=== PATIENT | male | born 1955 | race African-American/Black ===

== ENCOUNTER 2021-08-20 09:17 | Inpatient (IN) | payer MEDICARE ==
[~2021-08-20] VITALS: Ht 177.8 cm; Wt 76.2 kg
[2021-08-20 09:43] LABS: BASOPHILS % (AUTO) 0.5 % (0.0-2.0); EOSINOPHILS % (AUTO) 1.2 % (1.0-6.0); HEMATOCRIT 43.9 % (41-53); HEMOGLOBIN 14.7 g/dL (13.5-17.5); LYMPHOCYTES # (AUTO) 2.4 K/uL (1.0-4.8); MEAN CORPUSCULAR HGB CONC 33.5 G/dL (31.0-37.0); MEAN CORPUSCULAR VOLUME 87 fL (80-100); MONOCYTES % (AUTO) 10.1 % (2.0-9.0); NEUTROPHILS # (AUTO) 6.5 K/uL (1.8-7.7); NEUTROPHILS % (AUTO) 64.2 % (40.0-70.0); PLATELET COUNT (AUTO) 196 K/uL (150-450); RED BLOOD CELL COUNT(AUTO) 5.07 MIL/uL (4.50-5.90); RED CELL DISTRIBUTION WIDTH 14.4 % (11.5-14.5)
[2021-08-20 09:57] LABS: CALCIUM, TOTAL 9.3 mg/dL (8.8-10.5); CREATININE 1.59 mg/dL (0.60-1.30)
[2021-08-20 10:10] LABS: ALBUMIN 3.2 g/dL (3.4-5.0); BILIRUBIN,TOTAL 0.4 mg/dL (0.1-1.0)
[2021-08-20] MEDS ORDERED: CLOPIDOGREL BISULFATE 75 MG TABLET PO ONE (10:15)
[2021-08-20] MEDS ORDERED: ASPIRIN 325 MG TABLET PO ONE (10:15)
[2021-08-20 10:26] LABS: PROTHROMBIN TIME 10.9 SEC (9.4-11.6)
[2021-08-20 10:50] LABS: COVID AG,FIA SOURCE NASAL SWAB
[2021-08-20 14:08] VITALS: BP 165/77
[2021-08-20] MEDS ORDERED: INFLUENZA VIRUS VACCINE QVS 2021-22 (6MO+)/PF 60 MCG/0.5 ML SYRINGE IM. ONE (15:15)
[2021-08-20] MEDS ORDERED: PNEUMOCOCCAL VACCINE POLYVALENT 0.5 ML VIAL [PPSV23] IM. ONE (15:15)
[2021-08-20] MEDS ORDERED: ACETAMINOPHEN 325 MG TABLET PO PRN (16:15)
[2021-08-20] MEDS ORDERED: MORPHINE SULFATE 2 MG/ML SYRINGE IVP PRN (16:15)
[2021-08-20] MEDS ORDERED: HYDROCODONE/ACETAMINOPHEN 5-325 MG TABLET PO PRN (16:15)
[2021-08-20] MEDS ORDERED: MAGNESIUM HYDROXIDE SUSPENSION 30 ML UDCUP PO PRN (16:15)
[2021-08-20] MEDS ORDERED: BISACODYL 10 MG RECTAL RECTAL SUPPOSITORY PR PRN (16:15)
[2021-08-20] MEDS ORDERED: ZOLPIDEM TARTRATE 5 MG TABLET PO PRN (16:15)
[2021-08-20] MEDS ORDERED: ONDANSETRON HCL 4 MG/2 ML VIAL IVP PRN (16:15)
[2021-08-20] MEDS ORDERED: ALBUTEROL SULFATE 2.5 MG/0.5 ML NEB SOLUTION NEB PRN (16:15)
[2021-08-20] MEDS ORDERED: IPRATROPIUM BROMIDE 0.5 MG/2.5 ML NEB SOLUTION NEB PRN (16:15)
[2021-08-20 20:18] VITALS: BP 134/68
[2021-08-20] MEDS: DOCUSATE SODIUM 100 MG CAPSULE PO SCH (21:21)
[2021-08-21] VITALS (7 sets, daily range): BP systolic 115–161; BP diastolic 63–83
[2021-08-21] MEDS: HEPARIN SODIUM,PORCINE 5,000 UNITS/ML VIAL SQ SCH ×4 (00:31→23:27)
[2021-08-21 07:14] LABS: CHOL/HDL RATIO 5.9 (4.2-7.3)
[2021-08-21] MEDS: PANTOPRAZOLE SODIUM 40 MG/VIAL IVP SCH (08:28)
[2021-08-21] MEDS: ASPIRIN 81 MG DR TABLET PO SCH (08:28)
[2021-08-21] MEDS: DOCUSATE SODIUM 100 MG CAPSULE PO SCH ×2 (08:28→21:11)
[2021-08-21 15:55] LABS: THYROID STIMULATING HORMONE 3.49 uIU/mL (0.36-3.74)
[2021-08-22 04:35] VITALS: BP 161/69
[2021-08-22 05:57] VITALS: BP 161/69
[2021-08-22 06:55] LABS: BASOPHILS % (AUTO) 0.4 % (0.0-2.0); EOSINOPHILS % (AUTO) 2.4 % (1.0-6.0); HEMOGLOBIN 14.1 g/dL (13.5-17.5); LYMPHOCYTES # (AUTO) 2.4 K/uL (1.0-4.8); LYMPHOCYTES % (AUTO) 29.4 % (22.0-44.0); MEAN CORPUSCULAR HGB CONC 33.5 G/dL (31.0-37.0); MEAN CORPUSCULAR VOLUME 87 fL (80-100); MONOCYTES # (AUTO) 0.8 K/uL (0.1-1.0); MONOCYTES % (AUTO) 10.3 % (2.0-9.0); NEUTROPHILS # (AUTO) 4.7 K/uL (1.8-7.7); NEUTROPHILS % (AUTO) 57.5 % (40.0-70.0); RED BLOOD CELL COUNT(AUTO) 4.85 MIL/uL (4.50-5.90); RED CELL DISTRIBUTION WIDTH 14.4 % (11.5-14.5)
[2021-08-22 07:06] LABS: PLATELET COUNT (AUTO) 183 K/uL (150-450)
[2021-08-22 07:19] LABS: CREATININE 1.56 mg/dL (0.60-1.30); POTASSIUM 3.9 mmol/L (3.5-5.1)
[2021-08-22 07:31] VITALS: BP 127/75
[2021-08-22] MEDS: DOCUSATE SODIUM 100 MG CAPSULE PO SCH ×2 (09:41→21:22)
[2021-08-22] MEDS: HEPARIN SODIUM,PORCINE 5,000 UNITS/ML VIAL SQ SCH ×2 (09:41→17:47)
[2021-08-22] MEDS: PANTOPRAZOLE SODIUM 40 MG/VIAL IVP SCH (09:41)
[2021-08-22] MEDS: ASPIRIN 81 MG DR TABLET PO SCH (09:48)
[2021-08-22 11:33] VITALS: BP 122/63
[2021-08-22] MEDS: CLOPIDOGREL BISULFATE 75 MG TABLET PO SCH (12:14)
[2021-08-22 15:33] VITALS: BP 132/76
[2021-08-22] MEDS ORDERED: LORazepam 2 MG/ML VIAL IVP PRN (16:45)
[2021-08-22 20:15] VITALS: BP 140/81
[2021-08-22] MEDS: ATORVASTATIN CALCIUM 40 MG TABLET PO SCH (21:22)
[2021-08-23 00:27] VITALS: BP 150/76
[2021-08-23] MEDS: HEPARIN SODIUM,PORCINE 5,000 UNITS/ML VIAL SQ SCH ×3 (01:14→17:17)
[2021-08-23 04:55] VITALS: BP 156/68
[2021-08-23 06:31] LABS: BASOPHILS % (AUTO) 0.6 % (0.0-2.0); EOSINOPHILS % (AUTO) 2.2 % (1.0-6.0); HEMATOCRIT 40.7 % (41-53); HEMOGLOBIN 13.7 g/dL (13.5-17.5); LYMPHOCYTES # (AUTO) 2.4 K/uL (1.0-4.8); LYMPHOCYTES % (AUTO) 26.8 % (22.0-44.0); MEAN CORPUSCULAR HEMOGLOBIN 29.1 pg (26.0-34.0); MEAN CORPUSCULAR HGB CONC 33.7 G/dL (31.0-37.0); MEAN CORPUSCULAR VOLUME 86 fL (80-100); MONOCYTES # (AUTO) 0.9 K/uL (0.1-1.0); MONOCYTES % (AUTO) 10.3 % (2.0-9.0); NEUTROPHILS # (AUTO) 5.4 K/uL (1.8-7.7); NEUTROPHILS % (AUTO) 60.1 % (40.0-70.0); RED BLOOD CELL COUNT(AUTO) 4.72 MIL/uL (4.50-5.90); RED CELL DISTRIBUTION WIDTH 14.2 % (11.5-14.5)
[2021-08-23 06:47] LABS: CALCIUM, TOTAL 8.8 mg/dL (8.8-10.5); CREATININE 1.63 mg/dL (0.60-1.30); POTASSIUM 3.8 mmol/L (3.5-5.1)
[2021-08-23 06:55] VITALS: BP 148/67
[2021-08-23 08:04] LABS: PLATELET COUNT (AUTO) 183 K/uL (150-450)
[2021-08-23 08:05] LABS: PLATELET MORPHOLOGY COMMENT LARGE PLTS PRESENT
[2021-08-23] MEDS: DOCUSATE SODIUM 100 MG CAPSULE PO SCH ×2 (09:00→20:52)
[2021-08-23] MEDS: ASPIRIN 81 MG DR TABLET PO SCH (09:26)
[2021-08-23] MEDS: PANTOPRAZOLE SODIUM 40 MG/VIAL IVP SCH (09:28)
[2021-08-23] MEDS: CLOPIDOGREL BISULFATE 75 MG TABLET PO SCH (09:28)
[2021-08-23 10:23] VITALS: BP 134/73
[2021-08-23 15:41] VITALS: BP 164/67
[2021-08-23] MEDS: ATORVASTATIN CALCIUM 40 MG TABLET PO SCH (20:51)
[2021-08-23 21:10] VITALS: BP 127/71
[2021-08-24] MEDS: HEPARIN SODIUM,PORCINE 5,000 UNITS/ML VIAL SQ SCH ×2 (00:03→08:29)
[2021-08-24 00:10] VITALS: BP 149/89
[2021-08-24 04:02] VITALS: BP 129/75
[2021-08-24 07:20] VITALS: BP 154/69
[2021-08-24] MEDS: CLOPIDOGREL BISULFATE 75 MG TABLET PO SCH (08:29)
[2021-08-24] MEDS: DOCUSATE SODIUM 100 MG CAPSULE PO SCH (08:29)
[2021-08-24] MEDS: ASPIRIN 81 MG DR TABLET PO SCH (08:29)
[2021-08-24] MEDS: PANTOPRAZOLE SODIUM 40 MG/VIAL IVP SCH (08:29)
[2021-08-24 08:32] LABS: BASOPHILS % (AUTO) 0.5 % (0.0-2.0); EOSINOPHILS % (AUTO) 1.7 % (1.0-6.0); HEMOGLOBIN 14.9 g/dL (13.5-17.5); LYMPHOCYTES # (AUTO) 2.3 K/uL (1.0-4.8); LYMPHOCYTES % (AUTO) 25.1 % (22.0-44.0); MEAN CORPUSCULAR HEMOGLOBIN 28.9 pg (26.0-34.0); MEAN CORPUSCULAR HGB CONC 33.2 G/dL (31.0-37.0); MEAN CORPUSCULAR VOLUME 87 fL (80-100); MONOCYTES # (AUTO) 0.9 K/uL (0.1-1.0); MONOCYTES % (AUTO) 9.5 % (2.0-9.0); NEUTROPHILS # (AUTO) 5.9 K/uL (1.8-7.7); NEUTROPHILS % (AUTO) 63.2 % (40.0-70.0); RED BLOOD CELL COUNT(AUTO) 5.17 MIL/uL (4.50-5.90); RED CELL DISTRIBUTION WIDTH 14.6 % (11.5-14.5)
[2021-08-24 08:35] LABS: ALBUMIN 3.3 g/dL (3.4-5.0); BILIRUBIN,TOTAL 0.4 mg/dL (0.1-1.0); CALCIUM, TOTAL 9.3 mg/dL (8.8-10.5); CREATININE 1.63 mg/dL (0.60-1.30); TOTAL PROTEIN, SERUM 8.2 g/dL (6.4-8.2)
[2021-08-24] MEDS ORDERED: METOPROLOL SUCCINATE 25 MG ER TABLET PO SCH (09:00)
[2021-08-24 10:16] LABS: PLATELET COUNT (AUTO) 200 K/uL (150-450)
[2021-08-24 11:38] VITALS: BP 158/72
[2021-08-24 15:18] VITALS: BP 131/74
[2021-08-26 16:07] LABS: HEPATITIS C AB (EIA) >11.0 s/co ratio (0.0-0.9); HEPATITIS C RT-PCR,QNT HCV Not Detected IU/mL
== END 2021-08-24 15:50 | DRG 65 ==
LOC: EMS 09:20 → 5S 13:02
PROVIDERS: ADMIT Hospitalist; ATTEND Hospitalist
DX: I63.9 Cerebral infarction, unspecified (principal); N17.9 Acute kidney failure, unspecified; E44.0 Moderate protein-calorie malnutrition; G81.91 Hemiplegia, unspecified affecting right dominant side; E78.5 Hyperlipidemia, unspecified; F17.210 Nicotine dependence, cigarettes, uncomplicated; I10 Essential (primary) hypertension; R29.705 NIHSS score 5; G62.9 Polyneuropathy, unspecified; Z20.822 Contact with and (suspected) exposure to COVID-19; R47.81 Slurred speech; R00.1 Bradycardia, unspecified; R00.8 Other abnormalities of heart beat; Z68.24 Body mass index [BMI] 24.0-24.9, adult
CPT/HCPCS: 70496; 70498; 71045; 80048; 80053; 80061; 80074; 83735; 84443; 84484; 85025; 85610; 85730; 86850; 86900; 86901; 87522; 92507; 92610; 93005; 93306; 93880; 97112; 97116; 97162; 97166; 97530; 97535; 99291; C9113; J1644; 36415-L1; 36415-TC; 70450; 70450-TC

== ENCOUNTER 2021-08-24 15:49 | Inpatient (IN) | payer MEDICARE ==
[~2021-08-24] VITALS: Ht 177.8 cm; Wt 74.8 kg
[2021-08-24 16:30] VITALS: BP 140/74
[2021-08-24] MEDS ORDERED: MAGNESIUM HYDROXIDE SUSPENSION 30 ML UDCUP PO PRN (16:45)
[2021-08-24] MEDS ORDERED: ACETAMINOPHEN 325 MG TABLET PO PRN (16:45)
[2021-08-24] MEDS ORDERED: IPRATROPIUM BROMIDE 0.5 MG/2.5 ML NEB SOLUTION NEB PRN (16:45)
[2021-08-24] MEDS ORDERED: HYDROCODONE/ACETAMINOPHEN 5-325 MG TABLET PO PRN (16:45)
[2021-08-24] MEDS ORDERED: ALBUTEROL SULFATE 2.5 MG/0.5 ML NEB SOLUTION NEB PRN (16:45)
[2021-08-24] MEDS ORDERED: BISACODYL 10 MG RECTAL RECTAL SUPPOSITORY PR PRN (16:45)
[2021-08-24] MEDS ORDERED: INFLUENZA VIRUS VACCINE QVS 2021-22 (6MO+)/PF 60 MCG/0.5 ML SYRINGE IM. ONE (20:45)
[2021-08-24] MEDS: ATORVASTATIN CALCIUM 40 MG TABLET PO SCH (21:03)
[2021-08-24] MEDS: SENNA 187 MG TABLET PO SCH (21:03)
[2021-08-24] MEDS: DOCUSATE SODIUM 250 MG CAPSULE PO SCH (21:03)
[2021-08-24] MEDS: HEPARIN SODIUM,PORCINE 5,000 UNITS/ML VIAL SQ SCH (21:05)
[2021-08-24] MEDS: ETHYL ALCOHOL 62% ANTISEPTIC NASAL INHALANT 0.6 ML AMPUL NASAL SCH (21:08)
[2021-08-25 03:11] VITALS: BP 136/78
[2021-08-25 07:27] LABS: HEMATOCRIT 42.3 % (41-53); HEMOGLOBIN 13.9 g/dL (13.5-17.5); LYMPHOCYTES # (AUTO) 2.5 K/uL (1.0-4.8); LYMPHOCYTES % (AUTO) 25.3 % (22.0-44.0); MEAN CORPUSCULAR HEMOGLOBIN 28.5 pg (26.0-34.0); MEAN CORPUSCULAR VOLUME 87 fL (80-100); MONOCYTES # (AUTO) 0.9 K/uL (0.1-1.0); MONOCYTES % (AUTO) 9.7 % (2.0-9.0); PLATELET COUNT (AUTO) 197 K/uL (150-450); RED BLOOD CELL COUNT(AUTO) 4.89 MIL/uL (4.50-5.90); RED CELL DISTRIBUTION WIDTH 14.7 % (11.5-14.5)
[2021-08-25 07:43] LABS: CREATININE 1.7 mg/dL (0.60-1.30); POTASSIUM 4.1 mmol/L (3.5-5.1)
[2021-08-25 07:44] LABS: BILIRUBIN,TOTAL 0.3 mg/dL (0.1-1.0); TOTAL PROTEIN, SERUM 7.4 g/dL (6.4-8.2)
[2021-08-25 08:05] VITALS: BP 140/71
[2021-08-25] MEDS: DOCUSATE SODIUM 250 MG CAPSULE PO SCH ×2 (08:36→20:53)
[2021-08-25] MEDS: PANTOPRAZOLE SODIUM 40 MG DR TABLET PO SCH (08:37)
[2021-08-25] MEDS: HEPARIN SODIUM,PORCINE 5,000 UNITS/ML VIAL SQ SCH ×3 (08:37→20:56)
[2021-08-25] MEDS: CLOPIDOGREL BISULFATE 75 MG TABLET PO SCH (08:37)
[2021-08-25] MEDS: ASPIRIN 81 MG DR TABLET PO SCH (08:37)
[2021-08-25] MEDS: METOPROLOL SUCCINATE 25 MG ER TABLET PO SCH (08:37)
[2021-08-25] MEDS: ETHYL ALCOHOL 62% ANTISEPTIC NASAL INHALANT 0.6 ML AMPUL NASAL SCH ×2 (10:17→20:51)
[2021-08-25 15:42] VITALS: BP 111/81
[2021-08-25] MEDS: ATORVASTATIN CALCIUM 40 MG TABLET PO SCH (20:53)
[2021-08-25] MEDS: SENNA 187 MG TABLET PO SCH (20:53)
[2021-08-25 23:30] VITALS: BP 134/61
[2021-08-25] MEDS: MELATONIN 3 MG TABLET PO PRN (23:32)
[2021-08-26 00:03] VITALS: BP 134/61
[2021-08-26] MEDS: ETHYL ALCOHOL 62% ANTISEPTIC NASAL INHALANT 0.6 ML AMPUL NASAL SCH ×2 (08:28→20:46)
[2021-08-26] MEDS: HEPARIN SODIUM,PORCINE 5,000 UNITS/ML VIAL SQ SCH ×4 (08:28→21:00)
[2021-08-26] MEDS: ASPIRIN 81 MG DR TABLET PO SCH (08:29)
[2021-08-26] MEDS: DOCUSATE SODIUM 250 MG CAPSULE PO SCH ×2 (08:29→20:46)
[2021-08-26] MEDS: PANTOPRAZOLE SODIUM 40 MG DR TABLET PO SCH (08:29)
[2021-08-26] MEDS: CLOPIDOGREL BISULFATE 75 MG TABLET PO SCH (08:29)
[2021-08-26] MEDS: METOPROLOL SUCCINATE 25 MG ER TABLET PO SCH (08:29)
[2021-08-26 09:55] VITALS: BP 140/70
[2021-08-26 16:05] VITALS: BP 119/66
[2021-08-26] MEDS: SENNA 187 MG TABLET PO SCH (20:45)
[2021-08-26] MEDS: MELATONIN 3 MG TABLET PO PRN (20:45)
[2021-08-26] MEDS: ATORVASTATIN CALCIUM 40 MG TABLET PO SCH (20:45)
[2021-08-27 00:25] VITALS: BP 127/68
[2021-08-27 08:05] VITALS: BP 145/68
[2021-08-27] MEDS: PANTOPRAZOLE SODIUM 40 MG DR TABLET PO SCH (08:08)
[2021-08-27] MEDS: HEPARIN SODIUM,PORCINE 5,000 UNITS/ML VIAL SQ SCH ×3 (08:08→20:40)
[2021-08-27] MEDS: DOCUSATE SODIUM 250 MG CAPSULE PO SCH ×2 (08:09→20:40)
[2021-08-27] MEDS: METOPROLOL SUCCINATE 25 MG ER TABLET PO SCH (08:09)
[2021-08-27] MEDS: ETHYL ALCOHOL 62% ANTISEPTIC NASAL INHALANT 0.6 ML AMPUL NASAL SCH ×2 (08:10→20:40)
[2021-08-27] MEDS: ASPIRIN 81 MG DR TABLET PO SCH (08:10)
[2021-08-27] MEDS: CLOPIDOGREL BISULFATE 75 MG TABLET PO SCH (08:10)
[2021-08-27 16:30] VITALS: BP 114/63
[2021-08-27] MEDS: ATORVASTATIN CALCIUM 40 MG TABLET PO SCH (20:40)
[2021-08-27] MEDS: SENNA 187 MG TABLET PO SCH (20:40)
[2021-08-27] MEDS: MELATONIN 3 MG TABLET PO PRN (21:00)
[2021-08-28 06:30] VITALS: BP 147/72
[2021-08-28 07:30] VITALS: BP 127/56
[2021-08-28] MEDS: DOCUSATE SODIUM 250 MG CAPSULE PO SCH ×2 (08:09→19:43)
[2021-08-28] MEDS: ETHYL ALCOHOL 62% ANTISEPTIC NASAL INHALANT 0.6 ML AMPUL NASAL SCH ×2 (08:09→19:43)
[2021-08-28] MEDS: ASPIRIN 81 MG DR TABLET PO SCH (08:09)
[2021-08-28] MEDS: PANTOPRAZOLE SODIUM 40 MG DR TABLET PO SCH (08:10)
[2021-08-28] MEDS: CLOPIDOGREL BISULFATE 75 MG TABLET PO SCH (08:10)
[2021-08-28] MEDS: HEPARIN SODIUM,PORCINE 5,000 UNITS/ML VIAL SQ SCH ×3 (08:10→19:43)
[2021-08-28] MEDS: METOPROLOL SUCCINATE 25 MG ER TABLET PO SCH (09:00)
[2021-08-28 10:05] VITALS: BP 123/56
[2021-08-28] MEDS ORDERED: METO25XL PO (10:32)
[2021-08-28] MEDS ORDERED: ATOR40TA71 PO (10:32)
[2021-08-28] MEDS ORDERED: PANT-31 PO (10:32)
[2021-08-28] MEDS ORDERED: CLOP75TA60 PO (10:32)
[2021-08-28] MEDS ORDERED: DOCU-350 PO (10:32)
[2021-08-28] MEDS ORDERED: ASPI-1444 PO (10:32)
[2021-08-28 16:45] VITALS: BP 122/61
[2021-08-28] MEDS: ATORVASTATIN CALCIUM 40 MG TABLET PO SCH (19:44)
[2021-08-28] MEDS: SENNA 187 MG TABLET PO SCH (19:44)
[2021-08-28] MEDS: MELATONIN 3 MG TABLET PO PRN (19:55)
[2021-08-29 04:30] VITALS: BP 147/64
[2021-08-29] MEDS: ETHYL ALCOHOL 62% ANTISEPTIC NASAL INHALANT 0.6 ML AMPUL NASAL SCH ×2 (08:17→20:09)
[2021-08-29] MEDS: METOPROLOL SUCCINATE 25 MG ER TABLET PO SCH (08:18)
[2021-08-29] MEDS: DOCUSATE SODIUM 250 MG CAPSULE PO SCH ×2 (08:19→20:08)
[2021-08-29] MEDS: ASPIRIN 81 MG DR TABLET PO SCH (08:19)
[2021-08-29] MEDS: CLOPIDOGREL BISULFATE 75 MG TABLET PO SCH (08:19)
[2021-08-29] MEDS: PANTOPRAZOLE SODIUM 40 MG DR TABLET PO SCH (08:19)
[2021-08-29] MEDS: HEPARIN SODIUM,PORCINE 5,000 UNITS/ML VIAL SQ SCH ×4 (08:20→20:12)
[2021-08-29 08:29] LABS: CALCIUM, TOTAL 9.4 mg/dL (8.8-10.5); CREATININE 1.6 mg/dL (0.60-1.30); POTASSIUM 3.7 mmol/L (3.5-5.1)
[2021-08-29 08:30] VITALS: BP 149/95
[2021-08-29 16:18] VITALS: BP 145/71
[2021-08-29] MEDS: MELATONIN 3 MG TABLET PO PRN (20:08)
[2021-08-29] MEDS: SENNA 187 MG TABLET PO SCH (20:08)
[2021-08-29] MEDS: ATORVASTATIN CALCIUM 40 MG TABLET PO SCH (20:08)
[2021-08-30] VITALS: BP 142/75
[2021-08-30] MEDS: ASPIRIN 81 MG DR TABLET PO SCH (08:12)
[2021-08-30] MEDS: ETHYL ALCOHOL 62% ANTISEPTIC NASAL INHALANT 0.6 ML AMPUL NASAL SCH (08:12)
[2021-08-30] MEDS: PANTOPRAZOLE SODIUM 40 MG DR TABLET PO SCH (08:12)
[2021-08-30] MEDS: CLOPIDOGREL BISULFATE 75 MG TABLET PO SCH (08:12)
[2021-08-30] MEDS: DOCUSATE SODIUM 250 MG CAPSULE PO SCH (08:13)
[2021-08-30] MEDS: HEPARIN SODIUM,PORCINE 5,000 UNITS/ML VIAL SQ SCH (08:13)
[2021-08-30] MEDS: METOPROLOL SUCCINATE 25 MG ER TABLET PO SCH (08:14)
[2021-08-30 11:20] VITALS: BP 140/56
== END 2021-08-30 13:45 | disposition home health service (06) | DRG 56 ==
LOC: 2WR 15:53
PROVIDERS: ADMIT Physical Medicine & Rehabilitation; ATTEND Physical Medicine & Rehabilitation
DX: G81.91 Hemiplegia, unspecified affecting right dominant side (principal); I63.9 Cerebral infarction, unspecified; E46 Unspecified protein-calorie malnutrition; R47.01 Aphasia; I65.29 Occlusion and stenosis of unspecified carotid artery; N18.9 Chronic kidney disease, unspecified; R73.03 Prediabetes; E78.5 Hyperlipidemia, unspecified; I10 Essential (primary) hypertension; D64.9 Anemia, unspecified; Z79.899 Other long term (current) drug therapy; Z86.73 Personal history of transient ischemic attack (TIA), and cerebral infarction without residual deficits; Z79.82 Long term (current) use of aspirin; Z68.23 Body mass index [BMI] 23.0-23.9, adult
CPT/HCPCS: 80048; 80053; 83036; 85025; 87081; 92507; 92610; 97112; 97116; 97163; 97166; 97530; 97535; 99366; J1644